=== PATIENT | male | born 1990 | race Caucasian/White ===

== ENCOUNTER 2016-11-03 18:14 | Emergency (ER) | payer MEDICAID ==
[~2016-11-03] VITALS: Ht 188 cm; Wt 130.2 kg
[2016-11-03 18:28] VITALS: BP_SYST 153
[2016-11-03] MEDS ORDERED: IBUPROFEN 800 MG TABLET PO ONE (19:00)
[2016-11-03] MEDS ORDERED: cefTRIAXone 1 GM VIAL IM ONE (19:00)
[2016-11-03] MEDS ORDERED: cefTRIAXone 1 GM IVPB PREMIX 50 ML IV ONE (19:15)
[2016-11-03] MEDS ORDERED: FLUCONAZOLE 100 MG TABLET (DIFLUCAN) PO ONE (19:15)
[2016-11-03] MEDS ORDERED: INSULIN REGULAR, HUMAN 10 UNITS/0.1 ML INJ IVP ONE (19:15)
[2016-11-03 19:36] LABS: BASOPHILS % (AUTO) 0.3 % (0.0-2.0); EOSINOPHILS # (AUTO) 0.2 K/uL (0.0-0.4); EOSINOPHILS % (AUTO) 2.3 % (0.0-4.0); HEMATOCRIT 46.4 % (36-54); HEMOGLOBIN 15.6 g/dL (14.0-18.0); LYMPHOCYTES # (AUTO) 2.8 K/uL (1.0-5.5); LYMPHOCYTES % (AUTO) 29.9 % (20.5-51.5); MEAN CORPUSCULAR HEMOGLOBIN 30 pg (27-31); MEAN CORPUSCULAR HGB CONC 34 % (32-36); MEAN CORPUSCULAR VOLUME 88 fL (79.0-98.0); MONOCYTES # (AUTO) 0.4 K/uL (0.0-1.0); MONOCYTES % (AUTO) 4.6 % (1.7-9.3); NEUTROPHILS # (AUTO) 6.1 K/uL (1.8-7.7); NEUTROPHILS % (AUTO) 62.9 % (40.0-70.0); PLATELET COUNT (AUTO) 185 K/uL (130-430); RED BLOOD CELL COUNT(AUTO) 5.29 MIL/uL (4.2-6.2); RED CELL DISTRIBUTION WIDTH 12.2 % (9.0-15.0); WHITE BLOOD COUNT (AUTO) 9.5 K/uL (4.8-10.8)
[2016-11-03 19:50] LABS: ACETONE, SERUM NEGATIVE (NEGATIVE)
[2016-11-03 19:52] LABS: ANION GAP 6 (5-15); CALCIUM 8.7 mg/dL (8.4-11.0); CHLORIDE 102 mmol/L (98-107); CREATININE 0.86 mg/dL (0.55-1.30); GLUCOSE 297 mg/dL (70-99); POTASSIUM 3.5 mmol/L (3.5-5.1); SODIUM SERUM 135 mmol/L (136-145); UREA NITROGEN, BLOOD 17 mg/dL (8-21)
[2016-11-03 19:53] LABS: GFR AFRICAN AMERICAN 141 mL/min (>90)
[2016-11-03 20:04] LABS: ALANINE AMINOTRANSFERASE 81 U/L (12-78); ALBUMIN 3.5 g/dL (3.4-4.8); ASPARTATE AMINOTRANSFERASE 37 U/L (10-37); FREE T4 (FREE THYROXINE) 0.7 ng/dL (0.6-1.6); TOTAL BILIRUBIN 0.5 mg/dL (0.0-1.0); TOTAL PROTEIN, SERUM 7.1 g/dL (6.4-8.3)
[2016-11-03 20:45] VITALS: BP_SYST 131
== END 2016-11-03 20:45 | disposition home or self-care (01) ==
LOC: SED 18:14
DX: N48.22 Cellulitis of corpus cavernosum and penis (principal); E11.9 Type 2 diabetes mellitus without complications
CPT/HCPCS: 36415; 80053; 82009; 82962; 83605; 83880; 84439; 84484; 85025; 87040; 96365; 96375; 99284; J0696; J1815

== ENCOUNTER 2018-04-02 22:03 | Emergency (ER) | payer MEDICAID ==
[~2018-04-02] VITALS: Ht 190.5 cm; Wt 127.0 kg
[2018-04-02 22:31] VITALS: BP_SYST 156
--- NOTE | 2018-04-02 22:35 | NUR ---
Patient to ER bed 05 to gown for evaluation. Side rails up. Report given to EVIN Blue
--- NOTE | 2018-04-02 22:40 | NUR ---
ER at bedside examining patient.
--- NOTE | 2018-04-02 22:45 | NUR ---
Pt came into the ED for constant L lower molar pain. Pt says it is 9/10 and he has taken tylenol but has no relief. Pt has seen his dentist prior to coming into ED but says the pain is still there. Denies n/v/d or fever. No other complaints/injuries noted.
[2018-04-02] MEDS ORDERED: KETOROLAC TROMETHAMINE 60 MG/2 ML VIAL IM ONE (23:00)
[2018-04-02 23:23] VITALS: BP_SYST 147
--- NOTE | 2018-04-02 23:23 | NUR ---
Patient given written and verbal discharge instructions and verbalizes understanding. ER MD discussed with patient the results and treatment provided. Patient in stable condition. ID arm band removed. IV catheter removed intact and dressing applied, no active bleeding. Rx of Motrin, Penicillin, and Tramadol given. Patient educated on pain management and to follow up with PMD. Pain Scale 2/10 tolerable to patient. Opportunity for questions provided and answered. Medication side effect fact sheet provided.
--- NOTE | 2018-04-02 23:33 | NUR ---
Note domignajesi in EDM - 04/02/18 at 2335 by [email or web address] Pt came into the ED for constant L lower molar pain. Pt says it is 9/10 and he has taken tylenol but has no relief. Pt has seen his dentist prior to coming into ED but says the pain is still there. Denies n/v/d or fever. No other complaints/injuries noted.
[2018-04-03] MEDS ORDERED: hydrALAZINE HCL 20 MG/ML VIAL ONE (06:21)
== END 2018-04-02 23:23 | disposition home or self-care (01) ==
LOC: SED 22:03
DX: K08.89 Other specified disorders of teeth and supporting structures (principal)
CPT/HCPCS: 96372; 99283; J1885; J0360